=== PATIENT | female | born 1980 | race Caucasian/White ===

== ENCOUNTER 2023-01-13 09:18 | Emergency (ER) | payer BC, SELFPAY ==
[2023-01-13] VITALS (22 sets, daily range): BP systolic 96–119; BP diastolic 62–73; PULSE 60–80; RESP 16; TEMP 36.9; O2SAT 98–100; BMI 30.5
--- NOTE | 2023-01-13 11:10 | CRLHL7_ITS ---
For Patients: As a result of the Century Cures Act, medical imaging exams and procedure reports are released immediately into your electronic medical record. You may view this report before your referring provider. If you have questions, please contact your health care provider. Indication: Chest pain Technique: Chest 2 views Comparison: None Findings/Impression: Cardiovascular and mediastinum: Heart size and vasculature are normal in caliber and appearance. Mediastinum is within normal limits. Lungs and pleural spaces: Lungs are clear. No sign of infiltrate or mass. No sign of pleural effusion. No pneumothorax. Bones and soft tissues: No significant findings. Dictated by Ernesto Damon MD @ 01/13/2023 11:57:09 AM (Electronically Signed)
--- NOTE | 2023-01-13 11:18 | ED_ITS ---
HPI - Chest Pain General Date Seen: 01/13/23 Chief Complaint: Chest Pain Stated Complaint: chest pain Time Seen by Provider: 01/13/23 10:59 Source: patient Mode of arrival: ambulatory Limitations: no limitations History of Present Illness HPI narrative: Patient is a 42-year-old female with no pertinent medical problems presenting to emergency department for chest pain. States for the past week she has been having chronic dull midsternal chest pain. She is concerned because today the chest pain moved more to the left side of her chest. The since moved back to the midsternal portion. She is not taking anything for the pain. She tried to call her clinic and was told to come to the emergency department. Denies shortness of breath, recent surgeries, history of cancer, unilateral leg swelling, control, shortness of breath, lightheadedness, dizziness, fevers, chills, diarrhea, constipation, abdominal pain. She does state the pain radiates to her back between her shoulder blades. Denies ever having symptoms like this before. She has no family history of cardiac heart disease before the age of 65. Related Data Allergies Allergy/AdvReac Type Severity Reaction Status Date / Time No Known Drug Allergies Allergy Verified 01/13/23 09:54 Review of Systems Status of ROS Reports: 10 or more systems reviewed and unremarkable except as noted in History and below PFSH PFS Social History Smoking Status: Never smoker Do you use any of these nicotine containing products: None Second hand tobacco smoke exposure: No How often do you have a drink containing alcohol: monthly or less How many standard drinks containing alcohol do you have on a typical day: 1 or 2 AUDIT-C Alcohol total score: 1 Non-prescribed substance use: denies use service: No Exam Narrative Exam Narrative: Const: Well-nourished, Well-developed, in mild distress Eyes: PERRL, no conjunctival injection, and symmetrical lids HENT: Atraumatic external nose and ears. Moist mucous membranes. Neck: Symmetric, trachea midline, No thyromegaly. CVS: RRR, No murmurs or gallops. Peripheral pulses 2+ and equal in all extremities RESP: Unlabored respiratory effort. Clear to auscultation bilaterally. GI: Nontender/Nondistended, No rebound or guarding. MSK:Extremities w/o deformity, Normal Active ROM Skin: Warm, Dry. No rashes or lesions. Neuro: Normal Muscle tone, No focal neurological deficits. Psych: Awake, Alert, & Oriented x3. Appropriate mood and affect. Const Vital Signs, click to edit/add: Vital Signs - 24 hr 01/13/23 09:44 01/13/23 10:11 01/13/23 10:13 Temperature 98.5 F Pulse Rate 66 80 Pulse Rate [Left Pulse Oximeter] 77 Respiratory Rate 16 Blood Pressure 106/62 Blood Pressure [Right Upper Arm] 119/73 Pulse Oximetry 99 98 99 Oxygen Delivery Method Room Air 01/13/23 10:15 01/13/23 10:30 01/13/23 10:32 Temperature Pulse Rate 70 69 73 Pulse Rate [Left Pulse Oximeter] Respiratory Rate Blood Pressure 104/64 Blood Pressure [Right Upper Arm] Pulse Oximetry 99 99 98 Oxygen Delivery Method 01/13/23 10:33 01/13/23 10:45 01/13/23 11:00 Temperature Pulse Rate 67 65 72 Pulse Rate [Left Pulse Oximeter] Respiratory Rate Blood Pressure Blood Pressure [Right Upper Arm] Pulse Oximetry 99 98 98 Oxygen Delivery Method 01/13/23 11:01 01/13/23 11:15 01/13/23 11:30 Temperature Pulse Rate 73 72 60 Pulse Rate [Left Pulse Oximeter] Respiratory Rate Blood Pressure 96/65 Blood Pressure [Right Upper Arm] Pulse Oximetry 99 99 99 Oxygen Delivery Method 01/13/23 11:32 01/13/23 11:45 01/13/23 12:00 Temperature Pulse Rate 60 69 74 Pulse Rate [Left Pulse Oximeter] Respiratory Rate Blood Pressure 111/66 Blood Pressure [Right Upper Arm] Pulse Oximetry 99 99 99 Oxygen Delivery Method 01/13/23 12:02 01/13/23 12:15 01/13/23 12:34 Temperature Pulse Rate 74 74 67 Pulse Rate [Left Pulse Oximeter] Respiratory Rate 16 Blood Pressure 110/68 Blood Pressure [Right Upper Arm] Pulse Oximetry 100 100 100 Oxygen Delivery Method Course Vital Signs Vital signs: Initial Vital Signs Temperature 98.5 F 01/13/23 09:44 Temperature Source Temporal Artery Scan 01/13/23 09:44 Pulse Rate 77 01/13/23 09:44 Pulse Rhythm Regular 01/13/23 09:44 Respiratory Rate 16 01/13/23 09:44 Blood Pressure 119/73 01/13/23 09:44 Blood Pressure Mean 88 01/13/23 09:44 Pulse Oximetry 99 01/13/23 09:44 Oxygen Delivery Method Room Air 01/13/23 09:44 Vital Signs Temperature 98.5 F 01/13/23 09:44 Pulse Rate 77 01/13/23 09:44 Respiratory Rate 16 01/13/23 09:44 Blood Pressure 119/73 01/13/23 09:44 Pulse Oximetry 99 01/13/23 09:44 Oxygen Delivery Method Room Air 01/13/23 09:44 Temperature 98.5 F 01/13/23 09:44 Pulse Rate 67 01/13/23 12:34 Respiratory Rate 16 01/13/23 12:34 Blood Pressure 110/68 01/13/23 12:02 Pulse Oximetry 100 01/13/23 12:34 Oxygen Delivery Method Room Air 01/13/23 09:44 MDM - Chest Pain MDM Narrative Medical decision making narrative: Patient is a 42-year-old female presenting to emergency department for chest pain. Pain initially in her midsternal region that radiates to the left side of the chest and back to midsternal. She is nontender to palpation of the chest. Symptoms been going on for a week now. She is PERC negative and unlikely to be pulmonary embolism. Pain does radiate to her back but it is a dull pain reminiscent of those look stable so aortic dissection seems unlikely at this time. She is low risk right now heart disease we will do workup to rule out ACS. Chest x-ray also ordered. Lab work returns showing no concerning abnormalities. Repeat troponin was also within normal limits. We did order a lipase to make sure there was not any referred pain from pancreatitis and lipase was normal denies unlikely. Chest x- ray showed no signs of pneumothorax, widened mediastinum, pneumonia or any other acute abnormality. I am uncertain exactly what is causing her discomfort at this time but does not appear to be cardiac or pulmonary related. She is not tender to palpation and is unlikely to be costochondritis. Could be his reflux. We will discharge the patient home. Lab Data Labs: Lab Results 01/13/23 01/13/23 01/13/23 Range/Units 10:15 11:11 12:35 WBC 6.80 (4.50-11.00) K/uL RBC 4.57 (4.00-5.20) m/uL Hgb 11.3 L (12.0-16.0) gm/dL Hct 36.8 (33.0-51.0) % MCV 81 (80-100) fL MCH 25 L (26-34) pg MCHC 31 L (32-36) gm/dL RDW Coeff of Ashish 17.7 H (11.5-15.5) % Plt Count 309 (140-440) K/uL Neut % (Auto) 56.9 (42.0-72.0) % Lymph % (Auto) 27.5 (20-44) % Hancock % (Auto) 8.4 (0.0-11.0) % Eos % (Auto) 6.6 (0.0-7.0) % Baso % (Auto) 0.6 (0.0-3.0) % Neut # (Auto) 3.87 (1.7-7.0) K/uL Lymph # (Auto) 1.87 (0.90-2.90) K/uL Hancock # (Auto) 0.60 (0.00-0.90) K/UL Eos # (Auto) 0.45 (0.00-0.50) K/uL Baso # (Auto) 0.04 (0.00-0.30) K/uL Abs Immat Gran (auto) 0.00 (0.00-0.30) K/uL Imm/Tot Granulo (auto) 0.0 % Sodium 139 (135-149) mmol/L Potassium 3.8 (3.6-5.1) mmol/L Chloride 106 (96-114) mmol/L Carbon Dioxide 24 (20-32) mmol/L Anion Gap 9 (7-15) mEq/L BUN 11 (5-24) mg/dL Creatinine 0.6 (0.5-1.5) mg/dL Estimated Creat Clear 121.20 Estimated GFR 116 ml/min Glucose 83 (60-115) mg/dL Calcium 8.8 (8.4-10.6) mg/dL Total Bilirubin 0.5 (0.1-1.5) mg/dL AST 28 (12-35) U/L ALT 15 (4-35) U/L Alkaline Phosphatase 90 (40-150) U/L Troponin I < 0.01 L (0.01-0.04) ng/mL Total Protein 7.4 (6.0-8.3) g/dL Albumin 4.2 (3.3-5.0) g/dL Lipase 64 (23-300) U/L POC Troponin I 0.00 L 0.00 L (0.01-0.04) ng/ml Imaging Data Chest x-ray: Radiologist's impression: Indication: Chest pain Technique: Chest 2 views Comparison: None Findings/Impression: Cardiovascular and mediastinum: Heart size and vasculature are normal in caliber and appearance. Mediastinum is within normal limits. Lungs and pleural spaces: Lungs are clear. No sign of infiltrate or mass. No sign of pleural effusion. No pneumothorax. Bones and soft tissues: No significant findings. Dictated by Ernesto Damon MD @ 01/13/2023 11:57:09 AM ECG Data Attestation: I personally reviewed and interpreted this ECG as follows: Prior ECG tracings: not available for review Interpretation: Normal sinus rhythm with a rate of 67 beats per minute, normal intervals, normal axis, no ST or T-wave abnormalities Discharge Plan Discharge Clinical Impression: Atypical chest pain Patient Disposition: Home, Self-Care Condition: Stable Instructions: Noncardiac Chest Pain (ED) Additional Instructions: Lab work and imaging shows is appears to be unlikely to be heart or lungs in nature causing her symptoms. It could be some underlying heart burn but I cannot say for certain. Try antacids [id number] to see if that helps with the symptoms. If symptoms continue follow-up with your primary care provider Follow Up/Referrals: Provider,Not a Local [Primary Care Provider] - Stand Alone Forms: My[facility] Info Instructions
[2023-01-13 11:26] LABS: Basophils Absolute Auto 0.04 K/uL (0.00-0.30); Basophils Percent Auto 0.6 % (0.0-3.0); Eosinophils Absolute Auto 0.45 K/uL (0.00-0.50); Eosinophils Percent Auto 6.6 % (0.0-7.0); Hematocrit 36.8 % (33.0-51.0); Hemoglobin* 11.3 gm/dL (12.0-16.0); Lymphocytes Absolute Auto 1.87 K/uL (0.90-2.90); Lymphocytes Percent Auto 27.5 % (20-44); Mean Corpuscular HGB Conc 31 gm/dL (32-36); Mean Corpuscular Hemoglobin 25 pg (26-34); Mean Corpuscular Volume 81 fL (80-100); Monocytes Percent Auto 8.4 % (0.0-11.0); Neutrophils Absolute Auto 3.87 K/uL (1.7-7.0); Neutrophils Percent Auto 56.9 % (42.0-72.0); Platelet Count* 309 K/uL (140-440); RDW Coefficient of Variation % 17.7 % (11.5-15.5); Red Blood Count 4.57 m/uL (4.00-5.20)
[2023-01-13 11:36] LABS: Slide Review Reflex No
[2023-01-13 11:56] LABS: Albumin* 4.2 g/dL (3.3-5.0); Chloride* 106 mmol/L (96-114)
[2023-01-13 11:57] LABS: Potassium* 3.8 mmol/L (3.6-5.1); Sodium* 139 mmol/L (135-149)
[2023-01-13 11:59] LABS: Alkaline Phosphatase* 90 U/L (40-150); Anion Gap 9 mEq/L (7-15); Aspartate Amino Transferase* 28 U/L (12-35); Bilirubin Total* 0.5 mg/dL (0.1-1.5); Blood Urea Nitrogen* 11 mg/dL (5-24); Carbon Dioxide* 24 mmol/L (20-32); Creatinine* 0.6 mg/dL (0.5-1.5); Estimated Glomerular Filt Rate 116 ml/min; Glucose* 83 mg/dL (60-115); Lipase* 64 U/L (23-300); Total Protein* 7.4 g/dL (6.0-8.3)
[2023-01-13 12:00] LABS: Alanine Aminotransferase* 15 U/L (4-35); Calcium* 8.8 mg/dL (8.4-10.6)
[2023-01-13 12:13] LABS: Troponin I* < 0.01 ng/mL (0.01-0.04)
--- NOTE | 2023-01-13 12:30 | ED.NURSE ---
Patient ambulated to bathroom. Stated she is still having pain in her sternum that comes and goes. MD notified. Wants a repeat POC troponin. Verbal order taken and placed in computer.
== END 2023-01-13 13:19 | disposition home or self-care (01) ==
PROVIDERS: Emergency Provider Student in an Organized Health Care Education/Training Program
DX: R07.9 Chest pain, unspecified (principal)
CPT/HCPCS: 36415; 71046; 80053; 83690; 84484; 85025; 99283; 99284